=== PATIENT | male | born 1980 | race Caucasian/White ===

== ENCOUNTER 2017-02-26 22:10 | Inpatient (IN) | payer MEDICAID ==
[~2017-02-26] VITALS: Ht 190.5 cm; Wt 81.3 kg
[~2017-02-26 22:10] MED LIST: AMBIEN10 MG OR; AMOXICILLIN500 MG OR; CLARITIN10 MG OR; EFFEXOR75 MG OR; KLONOPIN1 MG OR; LORTAB 10 OR; LORTAB 5 OR; LORTAB 7.5 OR; NO HOME MEDS PER PT; NO MEDS
--- NOTE | 2017-02-26 22:12 | NUR ---
PT WHEELED STRAIGHT BACK TO ROOM 9
--- NOTE | 2017-02-26 22:55 | NUR ---
MOM AT BEDSIDE, BLOOD DRAWN AFTER IV SITE STARTED AND PT AWARE HE HAS A PNUEMOTHORAX.
[2017-02-26 23:17] LABS: HEMATOCRIT 43.7 % (39.0-50.0); HEMOGLOBIN 15.2 g/dl (14.0-18.0); IMMATURE GRANULOCYTES 0.2 % (0.0-1.0); MEAN CELL VOLUME 94.2 fL CALC (80.0-100.0); MEAN CORPUSCULAR HGB 32.8 pG CALC (26.0-32.0); MEAN CORPUSCULAR HGB CONC 34.8 g/L CALC (32.0-36.0); NEUT# 5.49 thou/uL (1.82-7.42); RED BLOOD COUNT 4.64 mill/uL (4.70-6.10); RED CELL DISTRI WIDTH 13.1 % (11.5-15.5)
[2017-02-26 23:30] LABS: ALBUMIN 4.5 g/dL (3.2-5.0); ALKALINE PHOSPHATASE 47 u/l (38-126); ANION GAP 14 (6-22 (CALC)); BILIRUBIN, TOTAL 0.6 mg/dL (0.0-1.4); BUN 10 mg/dL (9-20); BUN/CREATININE RATIO 15 (12-20 (CALC)); CALCIUM 9.1 mg/dL (8.4-10.2); CARBON DIOXIDE 25 mmol/l (22-30); CHLORIDE 105 mmol/l (95-108); CREATININE 0.7 mg/dL (0.7-1.3); GFR > 60 ML/MIN (>=60 (CALC)); GFR FOR AFR.AMER. > 60 ML/MIN (>=60 (CALC)); GLUCOSE 99 mg/dL (75-110); POTASSIUM 3.7 mmol/l (3.5-5.1); SGOT/AST 24 u/l (17-59); SGPT/ALT 19 u/l (21-72); SODIUM 140 mmol/l (137-146); TOTAL PROTEIN 7.5 g/dL (6.3-8.2)
[2017-02-26 23:42] LABS: MYOGLOBIN 11 ng/mL (0 - 121)
--- NOTE | 2017-02-26 23:50 | NUR ---
IN WITH DR CARRILLO TO ASSIST WITH CHEST TUBE INSERTION.
[2017-02-27] VITALS (22 sets, daily range): BP systolic 98–145; BP diastolic 62–88
--- NOTE | 2017-02-27 00:21 | NUR ---
POST INSERTION XRAY DONE AND LUNG EXPANDED AND TUBE IN PLACE.
--- NOTE | 2017-02-27 01:28 | NUR ---
Admission Note Report Given to: RAGHAV LOPEZ. Transported by: Wheelchair X Stretcher Transported with: X Nurse Transporter X Patent IV O2 X Karate Instructor
--- NOTE | 2017-02-27 01:41 | NUR ---
male pt received to ICU bed 4 via stretcher accompanied by Dez Leone RN in stable condition; ambulatory to bed with weak/steady gait; admission assessment completed; pt alert and oriented; complaints of constant sharp pain to chest/chest tube site rating 5/10; will medicate; no n/v noted; resp even and unlabored; chest rise symmetrical; lungs clear/diminished slightly in left base; skin color wnl; ra; o2 sat 99%; chest tube intact to left lateral chest wall (5th ICS per Dez Leone); dressing cdi; no draingage noted; no crepitus palpated; chest tube to -20cm H20 suction/wall regulator; no air leak noted; hr reg; sb on monitor; strong pulses; no edema noted; bilat knee high nellie hose placed; abd soft with bs present; pt admits to voiding without difficulty; #18 in rfa saline locked; plan of care/ meds explained; oriented to bed and call light system; will continue to monitor
[2017-02-27 01:43] LABS: URINE BILIRUBIN - DIPSTICK NEGATIVE (NEGATIVE); URINE BLOOD DIPSTICK NEGATIVE (NEGATIVE); URINE CLARITY CLEAR; URINE COLOR YELLOW; URINE GLUCOSE - DIPSTICK NEGATIVE (NEGATIVE); URINE KETONE NEGATIVE (NEGATIVE); URINE LEUK ESTERASE NEGATIVE (NEGATIVE); URINE NITRITE - DIPSTICK NEGATIVE (Negative); URINE PROTEIN - DIPSTICK NEGATIVE (NEG-TRACE); URINE SPECIFIC GRAVITY <=1.005; URINE UROBILINOGEN - DIPSTICK 0.2 E.U./dL (0.2)
--- NOTE | 2017-02-27 02:09 | NUR ---
medicated with toradol as per orders for complaints of pain at chest tube site and chest rating 5/10; pain meds reviewed; pt states lortab causes vomiting; admits to taking lortab years ago for back pain; will continue to monitor
--- NOTE | 2017-02-27 03:02 | NUR ---
resting with eyes closed; no distress noted; chest tube intact/patent; clamps and vaseline gauzes at bedside; sb 46 on monitor; will continue to monitor
--- NOTE | 2017-02-27 04:05 | NUR ---
resting with eyes closed; no distress noted; ra; resp even and unlabored; chest tube patent to -20cm H2O; sb on monitor; will continue to monitor
--- NOTE | 2017-02-27 04:52 | NUR ---
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
--- NOTE | 2017-02-27 05:03 | NUR ---
medicated with morphine as per orders; sb 58 on monitor; pt admits to low heart rate; xray at bedside; also medicated wtih [place] for complaints of gas/ indigestion; states "i have to fart but can't because it hurts to bad"; will continue to monitor
--- NOTE | 2017-02-27 06:10 | NUR ---
resting in bed with eyes closed; resp remain even and unlabored; no distress noted; sb on monitor; hr noted as low as 37; iv intact; bed in lowest position; call light within reach
--- NOTE | 2017-02-27 06:14 | NUR ---
Dr Nuno called this proposal lead writer; update given; orders received to place chest tube to water seal;
--- NOTE | 2017-02-27 06:20 | NUR ---
chest tube placed to water seal/removed from suction; deep breathing strongly encouraged; pt reluctant d/t pain while deep breathing; no air leak/bubbling noted while deep breathing; o2 sats remain at 97-100%; will continue to monitor
--- NOTE | 2017-02-27 06:35 | NUR ---
awake; deep breathing encouraged and tolerated; no bubbling noted
--- NOTE | 2017-02-27 06:45 | NUR ---
BS REPORT RECEIVED FROM RAGHAV LOPEZ. PT RESTING IN HIGH FOWLERS, ATRIUM ASSESSED. NO LEAK PRESENT, PT ABLE TO TAKE A DEEP BREATHE IN, NO BUBBLING NOTED. DRY SUCTION PRESENT. VSS. PT CALL LIGHT WITHIN REACH. WILL CONTINUE TO MONITOR.
--- NOTE | 2017-02-27 08:15 | NUR ---
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 STATES "IM CHOKING, I CANT BREATHE." PT GIVEN ENCOURAGEMENT TO TAKE DEEP BREATHES, SPO2 IS 100 ON RA. LUNG SOUNDS ASSESSED. ANTERIOR/POSTERIOR LUNG SOUNDS HEARD. CHEST TUBE INSERTION SITE IS UNCHANGED. NO CREPITUS NOTED UPON PALPATION AROUND CHEST TUBE. BUBBLING NOTED IN CHAMBER WITH EACH DEEP BREATHE. EMAR REVIEWED, PAIN MEDICATION DISCUSSED. WILL MEDICATE PT WITH TORADOL. PT AGREEABLE.
--- NOTE | 2017-02-27 08:55 | NUR ---
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 CAN YOU TAKE IT OFF?" PATCH REMOVED AT THIS TIME. CHRIS MESA IN ROOM. PT CALL LIGHT WITHIN REACH. WILL CONTINUE TO MONITOR.
--- NOTE | 2017-02-27 09:15 | NUR ---
IN TO SEE PT AT THIS TIME. AWARE OF BUBBLING IN CHAMBER. DR. BARBOZA CONSULTED. ORDERS ARE TO CLAMP THE CHEST TUBE AT 1700 AND REPEAT CXR IN AM. PT AGREEABLE AND STATES UNDERSTANDING. WILL CONTINUE TO MONITOR.
--- NOTE | 2017-02-27 11:40 | NUR ---
PT TOLERATED 75% OF MEAL MULTIPLE MEMBERS OF FAMILY PRESENT. CALL LIGHT WITHIN REACH. WILL CONTINUE TO MONITOR.
--- NOTE | 2017-02-27 12:06 | NUR ---
DR. BARBOZA IN TO SEE PT AT THIS TIME. AGREES WITH DR. JOHNSON'S EXISTING ORDERS TO CLAMP CHEST TUBE AT 1700, AND REPEAT CXR IN AM. PT STATES UNDERSTANDING TO THE PLAN OF CARE, DENIES RESPIRATORY DISTRESS. WILL CONTINUE TO MONITOR.
--- NOTE | 2017-02-27 12:49 | NUR ---
PT MEDICATED WITH MORPHINE AT THIS TIME FOR EXTREME PAIN. PT ENCOURAGED TO TAKE DEEP BREATHES. WILL CONTINUE TO MONITOR PAIN AND RESPIRATIONS. HR IS BETWEEN 36-65. PT STATES "ENEIDA ALWAYS HAD A LOW HEART RATE." WILL CONTINUE TO MONITOR
--- NOTE | 2017-02-27 14:00 | NUR ---
PT IN HIGH FOWLERS RESTING WITH EYES CLOSED. CALL LIGHT WITHIN REACH. VSS. WILL CONTINUE TO MONITOR.
--- NOTE | 2017-02-27 16:18 | NUR ---
VISITOR AT BS, PT STATES "I ACTUALLY GOT TO SLEEP A LITTLE BIT." I STILL HEAR THE BUBBLING, JUST NOT BAD." VSS, PT STATES PAIN IS TOLERABLE. CALL LIGHT WITHIN REACH. WILL CONTINUE TO MONITOR.
--- NOTE | 2017-02-27 17:00 | NUR ---
CHEST TUBE CLAMPED AT THIS TIME. PT VSS STABLE. EXHIBITS NO S/S OF RESPIRATORY DISTRESS. LUNG SOUNDS REMAIN UNCHANGED. WILL CONTINUE TO MONITOR.
--- NOTE | 2017-02-27 18:10 | NUR ---
IS DELIVERED FROM RT, PT GIVEN EDUCATION AND INSTRUCTION OF IS. PT ABLE TO ACHEIVE GOAL OF 1500 X10. NO BUBBLING NOTED IN CHAMBER WHILE PERFORMING ACTIVITIES. FAMILY AT BS. CALL LIGHT WITHIN REACH. WILL CONTINUE TO MONITOR.
--- NOTE | 2017-02-27 18:50 | NUR ---
REPORT FROM RAGHAV BASURTO. ASSUMED PT. CARE.
--- NOTE | 2017-02-27 19:35 | NUR ---
PT. FOUND AWAKE, ALERT, ORIENTED X 3. NO DISTRESS NOTED. SINUS ANAM ON THE MONITOR RATE IN THE UPPER 40'S. SPO2 IS 100% ON RA. BP STABLE. PT. STATES HIS PAIN IS EXACERBATED UPON DEEP INSPIRATION. LUNG SOUNDS CLEAR BILATERALLY, WITH JUST A MINIMAL RUB UPON THE END OF EXPIRATION TO THE LT. UPPER LUNG FIELD. RATES PAIN 7/10 AT THIS TIME. LAZAR. KRISTA. RESPS EVEN AND UNLABORED. SKIN WARM AND DRY. AFEBRILE. WILL CONTINUE TO MONITOR. ADVISED PT. OF AVAILABLE MEDICATION AND SCHEDULING OF PAIN MEDICATION IF NEEDED. CALL LIGHT WITHIN REACH. SIG OTHER AT BEDSIDE AT THIS TIME.
--- NOTE | 2017-02-27 21:30 | NUR ---
PT. STATES HE IS GETTING TIRED AT THIS TIME. MEDICATED WITH XANAX PER HIS REQUEST TO ASSIST HIM IN SLEEPING. RELATES HE IS MILDLY ANXIOUS AT THIS TIME. WILL MEDICATE ORDERED. CALL LIGHT REMAINS WITHIN REACH.
--- NOTE | 2017-02-27 23:15 | NUR ---
PT. RESTING IN BED WITH EYES CLOSED. REMAINS SINUS ANAM ON THE MONITOR. RESPS EVEN AND UNLABORED 14/MIN. SKIN WARM AND DRY. SPO2 IS 99% ON RA. NO AIR LEAKS NOTED TO CHEST TUBE ASSEMBLY. CHEST TUBE REMAINS CLAMPED AT THIS TIME. CALL LIGHT REMAINS WITHIN REACH. WILL CONTINUE TO MONITOR.
[2017-02-28] VITALS (12 sets, daily range): BP systolic 95–140; BP diastolic 58–86
--- NOTE | 2017-02-28 00:58 | NUR ---
PT. RESTING WITH EYES CLOSED AND SNORING RESPIRATIONS. NO RESP DISTRESS NOTED. REMAINS SINUS ANAM ON THE MONITOR. SPO2 99% ON RA. CALL LIGHT REMAINS WITHIN REACH. WILL CONTINUE TO ASSESS.
--- NOTE | 2017-02-28 01:59 | NUR ---
PT. REMAINS AROUSABLE TO LIGHT VERBAL STIMULI. NO DISTRESS. C/O MILD PAIN 10/28 AT THIS TIME. MEDICATED WITH TORADOL PER ORDERS. RESPS REMAIN EVEN AND UNLABORED. SKIN WARM AND DRY. AFEBRILE. PROVIDED WITH WATER AT THIS TIME. DENIES OTHER COMPLAINTS.
--- NOTE | 2017-02-28 02:27 | NUR ---
PT. C/O LT. CHEST WALL PAIN AFTER GETTING UP TO URINATE. SCANT BLOODY DRAINAGE NOTED AT SITE OF CHEST TUBE. TUBE REMAINS INTACT AT THIS TIME. PT. DENIES SOB. SPO2 REMAINS AT 100%. MEDICATED WITH MORPHINE ORDERED AND PAIN HAS SUBSIDED. ELASTOPLAST APPLIED TO REINFORCE TUBE.
--- NOTE | 2017-02-28 04:15 | NUR ---
PT. RESTING WITH EYES CLOSED AND EVEN RESPIRATIONS. SLIGHTLY HYPOTENSIVE AT THIS TIME. WILL CONTINUE TO ASSESS. SPO2 STABLE AT 99% ON RA. PT. REMAINS ANAM AT 38-45 SINUS RHYTHM. NO DISTRESS.
--- NOTE | 2017-02-28 04:48 | NUR ---
PT. REMAINS AROUSABLE TO VERBAL STIMULI. LAB AT BEDSIDE AT THIS TIME. PT. INFORMED OF PENDING 1 VIEW CHEST. NO ADDITIONAL DRAINAGE NOTED FROM CHEST TUBE DRESSING SITE.
--- NOTE | 2017-02-28 05:00 | NUR ---
RADIOLOGY AT BEDSIDE AT THIS TIME FOR PORTABLE 1 VIEW CHEST.
[2017-02-28 06:12] LABS: HEMATOCRIT 42.5 % (39.0-50.0); HEMOGLOBIN 14.5 g/dl (14.0-18.0); IMMATURE GRANULOCYTES 0.3 % (0.0-1.0); MEAN CELL VOLUME 96.6 fL CALC (80.0-100.0); MEAN CORPUSCULAR HGB CONC 34.1 g/L CALC (32.0-36.0); NEUT# 6.56 thou/uL (1.82-7.42); RED BLOOD COUNT 4.4 mill/uL (4.70-6.10)
[2017-02-28 06:27] LABS: ANION GAP 9 (6-22 (CALC)); BUN 10 mg/dL (9-20); BUN/CREATININE RATIO 15 (12-20 (CALC)); CALCIUM 8.5 mg/dL (8.4-10.2); CARBON DIOXIDE 29 mmol/l (22-30); CHLORIDE 105 mmol/l (95-108); CREATININE 0.7 mg/dL (0.7-1.3); GFR > 60 ML/MIN (>=60 (CALC)); GFR FOR AFR.AMER. > 60 ML/MIN (>=60 (CALC)); GLUCOSE 73 mg/dL (75-110); POTASSIUM 4.5 mmol/l (3.5-5.1); SODIUM 139 mmol/l (137-146)
--- NOTE | 2017-02-28 06:32 | NUR ---
MADE AWARE OF SMALL LT. APICAL PNEUMO ON CHEST XRAY. PER DR. DODD, LEAVE CHEST TUBE CLAMPED AT THIS TIME. PT. RESTING IN BED WITH EYES CLOSED. NO DISTRESS. 100% SPO2 ON RA.
--- NOTE | 2017-02-28 06:45 | NUR ---
REPORT RECEIVED FROM RAGHAV ROE PT OBSERVED TO BE RESING WITH EYES CLOSED. VSS, DOES NOT EXHIBIT ANY S/S OF RESPIRATORY DISTRESS WILL CONTINUE TO MONITOR.
--- NOTE | 2017-02-28 07:30 | NUR ---
PT AWAKE AND ALERT. ASSESSMENT PERFORMED. LUNG SOUNDS PRESENT ANTERIORLY AND POSTERIORLY THROUGHOUT LEFT AND RIGHT LUNG FIELD. PT REPORTS TO BE FEELING BETTER. SUCTION CANISTER SET TO DRY SUCTION. VSS. DENIES PAIN AT THIS TIME. WILL CONTINUE TO MONITOR.
--- NOTE | 2017-02-28 08:25 | NUR ---
IN TO SEE PT AT THIS TIME. HEMASTATS REMOVED FROM CHEST TUBE. AIR BUBBLES PRESENT IN CHAMBER. WILL KEEP TUBING UN-CLAMPED AND CONNECTED TO WATER SEAL. DRSG TO TUBE INSERTION SITE REINFORCED. PT HAS SCANT AMOUNT OF BLOOD ON SKIN AND ON CHEST TUBE BELOW DRSG. MD AWARE.
--- NOTE | 2017-02-28 08:35 | NUR ---
PT MEDICATED WITH TORADOL AND XANAX FOR PAIN LOCATED TO CHEST TUBE INSERTION SITE AND LEFT SIDE OF CHEST. CALL LIGHT WITHIN REACH. FAMILY REMAINS AT BS. WILL CONTINUE TO MONITOR.
--- NOTE | 2017-02-28 09:55 | NUR ---
MD NOTIFIED OF PT'S CHANGE STATUS, WILL COME AND RE-ASSESS PT. PT MEDICATED WITH MORPHINE, STAT CXR OBTAINED.
--- NOTE | 2017-02-28 10:02 | NUR ---
CXR PERFORMMED AT THIS TIME. CT OF CHEST ORDERED IN ADDITION.
--- NOTE | 2017-02-28 11:00 | NUR ---
PT ASSISTED FROM BED TO WHEELCHAIR, AND TAKEN TO CT PROCEDURE. STABLE AT TIME OF DEPARTURE.
--- NOTE | 2017-02-28 11:30 | NUR ---
PT RETURNED FROM CT SCAN IN STABLE CONDITION. VSS OBTAINED. PT ASSISTED IN BED. ABLE TO CLEAR SECRETIONS, COMPLAINS OF PAIN LOCATED ANTERIORLY (APPROXIMATELY THE 4TH-5TH INTERCOSTAL SPACE). NO CREPITUS NOTED WHEN PERFORMING SKIN EXAMINATION. FAMILY AT , WILL CONTINUE TO MONITOR.
--- NOTE | 2017-02-28 13:21 | NUR ---
PAIN MEDICATION FOR CONTINUAL PAIN LOCATED TO THE FRONT OF LEFT CHEST WALL. PT CALL LIGHT WITHIN REACH. VSS INSTRUCTED PT TO CALL FOR ASSISANCE. STATES UNDERSTANDING.
--- NOTE | 2017-02-28 14:40 | NUR ---
ON PHONE AT THIS TIME. CT REPORT REVIEWED, ADJUSTMENTS MADE TO PLAN OF CARE, 1700 CLAMPING AND REPEAT CXR IN AM.
--- NOTE | 2017-02-28 16:10 | NUR ---
PT RESTING IN BED IN HIGH FOWLERS POSITION. CHEST TUBE SYSTEM ASSESSED. INTRATHORACIC PRESSURE CHAMBER NOTED TO BE AT 20CM, AND BEVEL NOT MOVING, WITH ANY TYPE OF MANIPULTION. HOSES ASSESSED FOR ANY KINKING OR LEAKING, NONE FOUND. SYSTEM TAPED TO FLOOR, PT AND FAMILY MEMBER DENY AT ANY TIME, SYSTEM BEING KNOCKED OVER. OASIS SYSTEM CHANGED AND SETUP TO DIRECTIONS PROVIDED. PT TOLERATED PROCEDURE WELL, MINIMAL AMOUNT OF PAIN NOTED. WHEN TUBING DISCONNECTED, AND NEW TUBING CONNECTED; PT STATED IMMEDIATE RELIEF OF PAIN AND PRESSURE IN THE ANTERIOR AND POSTERIOR OF CHEST. BEVEL IN THORACIC PRESSURE CHAMBER RESUMES MOVEMENT BEFORE. PT USE OF IS SUCCESSFUL, SMALL INTERMEDIATE AIR LEAK NOTED. VSS. PT REQUESTING PAIN MEDICATION AT THIS TIME, EMAR REVIEWED. WILL MEDICATE ACOORDINGLY.
--- NOTE | 2017-02-28 16:39 | NUR ---
PAIN/ INFLAMMATION/ AND ANXIETY MEDICATION GIVEN AT THIS TIME. PT GIVEN EDUCTION OF MECHANISM OF ACTION OF EACH. STATES UNDERSTANDING. VSS, CALL LIGHT WITHIN REACH. FAMILY REMAINS AT BS, WILL CONTINUE TO MONITOR.
--- NOTE | 2017-02-28 17:00 | NUR ---
TUBING CLAMPED AT THIS TIME, PER MD ORDER. AIR LEAK NOT SEEN WHILE PT OBSERVED ON THE IS. PT ABLE TO TALK WITH ADDITIONAL FAMILY IN ROOM. NO LEAK OBSERVED. FAMILY AND PT GIVEN EDUCATION OF EACH CHAMBER OF SUCTION CANISTER. STATES UNDERSTANDING, WILL PROVIDE RE-EDUCATION NEEDED. CALL LIGHT WITHIN REACH. VS REMAIN STABLE.
--- NOTE | 2017-02-28 18:50 | NUR ---
REPORT FROM RAGHAV BASURTO. ASSUMED PT. CARE.
--- NOTE | 2017-02-28 19:30 | NUR ---
PT. FOUND AWAKE, ALERT, ORIENTED X 3 IN NO DISTRESS. READING A BOOK AT THIS TIME. SPO2 IS STABLE AT 100% ON RA. NO DISTRESS. NO LEAKS NOTED TO CHEST TUBE DRAINAGE METER. CHEST TUBE IS CLAMPED AT THIS TIME. PT. HR STABLE IN THE 40-50'S. PT. DENIES COMPLAINTS OF NEED. STATES WITH 6/10 PAIN AT THIS TIME. WILL MEDICATE ORDERS ALLOW. CHEST TUBE CLEANSED OF DRIED BLOOD AT THIS TIME. NO ADDITIONAL BLEEDING NOTED AT INSERTION SITE OF FROM THE TUBE. RESPS EVEN AND UNLABORED. SKIN WARM AND DRY. KRISTA. NAGI.
--- NOTE | 2017-02-28 21:15 | NUR ---
PT. RESTING IN BED WITH NO DISTRESS. EYES CLOSED AND SNORING RESPIRATIONS. PT. DENIES COMPLAINTS OF PAIN OR NEED AT THIS TIME. WILL CONTINUE TO ASSESS.
--- NOTE | 2017-02-28 22:37 | NUR ---
PT. UP AT BEDSIDE TO URINATE AT THIS TIME. APPROX 55O CC URINE OUT. MEDICATED PER ORDERS. PT. REPOSITIONED FOR COMFORT. CHEST TUBE ASSEMBLY REMAINS INTACT WITHOUT SIGNS OF AIR LEAK. PT. REMAINS STABLE WITH SPO2 OF 100% ON RA.
[2017-03-01] VITALS (9 sets, daily range): BP systolic 93–124; BP diastolic 51–80
--- NOTE | 2017-03-01 00:16 | NUR ---
PT. RESTING IN BED WITH EYES CLOSED. VOICES NO COMPLAINTS OR CONCERNS. RESPS EVEN AND UNLABORED. SKIN WARM AND DRY. REMAINS SINUS ANAM ON THE MONITOR. SLIGHTLY HYPOSTENSIVE. SPO2 IS 98% ON RA. NO DISTRESS. CALL LIGHT REMAINS WITHIN REACH.
--- NOTE | 2017-03-01 02:15 | NUR ---
PT. RESTING IN BED SUPINE IN NO DISTRESS. RESPS EVEN AND UNLABORED. SKIN WARM AND DRY. DENIES COMPLAINTS.
--- NOTE | 2017-03-01 04:28 | NUR ---
PT. AWAKE, ALERT, ORIENTED X 3. SKIN WARM AND DRY. SCANT BLOODY DRAINAGE NOTED DOWN TUBE AFTER PT. GOT UP TO URINATE. STATES WITH BURNING AT SITE OF C CHEST TUBE. REPOSITIONED FOR COMFORT. ORANGE JUICE PROVIDED PER HIS REQUEST. REMAINS STABLE. RESPS EVEN AND UNLABORED. NO AIR LEAK NOTED TO CHEST TUBE ASSEMBLY. MAE. VELASCO. REMAINS AFEBRILE.
--- NOTE | 2017-03-01 05:20 | NUR ---
LAB AND RADIOLOGY AT BEDSIDE AT THIS TIME. 1 VIEW PORTABLE CHEST PERFORMED.
[2017-03-01 05:44] LABS: ANION GAP 9 (6-22 (CALC)); BUN 11 mg/dL (9-20); BUN/CREATININE RATIO 16 (12-20 (CALC)); CALCIUM 8.6 mg/dL (8.4-10.2); CARBON DIOXIDE 30 mmol/l (22-30); CHLORIDE 102 mmol/l (95-108); CREATININE 0.7 mg/dL (0.7-1.3); GFR > 60 ML/MIN (>=60 (CALC)); GFR FOR AFR.AMER. > 60 ML/MIN (>=60 (CALC)); GLUCOSE 98 mg/dL (75-110); POTASSIUM 4.1 mmol/l (3.5-5.1); SODIUM 138 mmol/l (137-146)
[2017-03-01 06:00] LABS: HEMATOCRIT 41.6 % (39.0-50.0); HEMOGLOBIN 14.2 g/dl (14.0-18.0); IMMATURE GRANULOCYTES 0.4 % (0.0-1.0); MEAN CELL VOLUME 96.3 fL CALC (80.0-100.0); MEAN CORPUSCULAR HGB 32.9 pG CALC (26.0-32.0); MEAN CORPUSCULAR HGB CONC 34.1 g/L CALC (32.0-36.0); NEUT# 4.77 thou/uL (1.82-7.42); RED BLOOD COUNT 4.32 mill/uL (4.70-6.10); RED CELL DISTRI WIDTH 12.8 % (11.5-15.5)
--- NOTE | 2017-03-01 07:20 | NUR ---
PT LAYING IN BED AWAKE WATCHING TV, VERBALIZES HE IS HAVING SOME DISCOMFORT OF HIS LEFT SIDE, PT STATED "I THINK IT'S FROM THE CHEST TUBE", A & O X3, PERRL, HR 75, RESP. 20, BP 121/75, O2 99% ON RA, LUNG SOUNDS CLEAR IN ALL HERNANDEZ, 18G RFA IV SALINE LOCKED, CHEST TUBE REMAINS IN PLACE WITH NO SUCTION, DRESSING CD&I, AM ASSESSMENT COMPLETE, SEE INTERVENTIONS, SAFETY MEASURES IN PLACE, CALL HERNANDEZ WITHIN REACH
--- NOTE | 2017-03-01 07:30 | NUR ---
SETUP ASSISTANCE PROVIDED WITH BHAVIN GOLDEN
--- NOTE | 2017-03-01 08:50 | NUR ---
DR JOHNSON AT BEDSIDE, DC'D CHEST TUBE, PT TOLERATED WELL, PRESSURE DRESSING APPLIED
--- NOTE | 2017-03-01 09:10 | NUR ---
PT ASSISTED TO THE BSC AND BACK TO BED, PT AMBULATED WITH A SLOW STEADY GAIT, TOLERATED WELL, CALL HERNANDEZ WITHIN REACH
--- NOTE | 2017-03-01 10:26 | NUR ---
PT LAYING IN BED WATCHING TV WITH VISITOR AT BEDSIDE, PT VERBALIZES NO COMPLAINTS, PRESSURE DRESSING CD&I, PT REMINDED TO CALL FOR ASSISTANCE, CALL HERNANDEZ WITHIN REACH
--- NOTE | 2017-03-01 10:55 | NUR ---
PT TO ROOM VIA WC ACCOMPANIED BY STAFF; AMBULATORY IN ROOM; ORIENTED TO ROOM AND CALL SYSTEM; PRESSURE DRSG TO LEFT SIDE OF CHEST CDI; CALL HERNANDEZ WITHIN REACH; WILL CONTINUE TO MONITOR.
--- NOTE | 2017-03-01 11:44 | NUR ---
PT MEDICATED FOR C/O LEFT SIDE CHEST PAIN 03/30; FAMILY IN ROOM; CALL HERNANDEZ WITHIN REACH; WILL CONTINUE TO MONITOR.
--- NOTE | 2017-03-01 16:28 | NUR ---
PT IS RELAXING IN BED AND VISITING WITH FAMILY NO DISTRESS NOTED. IV SITE IS FREE FROM REDNESS OR EDEMA.
--- NOTE | 2017-03-01 19:29 | NUR ---
PT. SITTING UP IN BED WITH NO RESP DISTRESS NOTED. ASSESSMENT COMPLETED. IV SITE PATENT TO RFA, DL, FLUSHED WITH NS. DRESSING CDI TO LEFT SIDE OF CHEST. PT. C/O LEFT PLEURAL PAIN 03/30, MEDICATED WITH ORDERED PERCOCET AND XANAX PER PTS REQUEST AND PER ORDER. PO FLUIDS OFFERED. PT. DENIES FURTHER NEEDS. CALL LIGHT IS IN REACH. WILL CONTINUE TO MONITOR.
--- NOTE | 2017-03-01 23:35 | NUR ---
PT. IS RESTING IN BED WITH EYES CLOSED. NO DISTRESS NOTED. RESP EVEN AND UNLABORED. CALL LIGHT IS IN REACH.
[2017-03-02 00:06] VITALS: BP 106/66
--- NOTE | 2017-03-02 03:15 | NUR ---
PT. RESTING IN BED WITH EYES CLOSED, SNORING. RESP EVEN AND UNLABORED. CALL LIGHT IS IN REACH.
--- NOTE | 2017-03-02 04:35 | NUR ---
PT. WOKE UP C/O LEFT PLEURAL/CHEST PAIN, MEDICATED WITH ORDERED PERCOCET AND TORDAOL, WILL REASSESS. PO FLUIDS OFFERED. DRESSING REMAINS CDI TO LEFT SIDE OF CHEST. DENIES FURTHER NEEDS. CALL LIGHT IS IN REACH.
[2017-03-02 04:45] VITALS: BP 116/75
--- NOTE | 2017-03-02 07:25 | NUR ---
REPORT RECEIVED FROM JENSEN CATHERINE. PT.SLEEPING AT THIS TIME, NO S/S OF DISTRESS, CALL LIGHT W/IN REACH
[2017-03-02 10:03] VITALS: BP 110/50
[2017-03-02] MEDS ORDERED: LORTAB 5-325 MG1 TAB PO (13:24)
[2017-03-02] MEDS ORDERED: NICOTINE T21 MG/PATC TD (13:24)
--- NOTE | 2017-03-02 15:15 | NUR ---
PT.OFF FLOOR DISCHARGED, PT.IN GOOD CONDITION AT THIS TIME. PT.WAS ACCOMPANIED BY HOSPITAL VOLUNTEER AND VIA
== END 2017-03-02 16:09 | disposition home or self-care (01) | DRG 201 ==
LOC: ENPENDDIS → ED 22:10 → ED-I 23:58 → ED 02-27 00:29 → ICU 02-27 00:30 → MS2 02-27 00:30
PROVIDERS: Emergency Medicine; Internal Medicine; Nurse Practitioner Family; ADMIT Internal Medicine; ATTEND Internal Medicine
PROC: 0W9B30Z Drainage of Left Pleural Cavity with Drainage Device, Percutaneous Approach (ICD-10-PCS; principal; 2017-02-27)
DX: J93.83 Other pneumothorax (principal); E01.0 Iodine-deficiency related diffuse (endemic) goiter; F17.210 Nicotine dependence, cigarettes, uncomplicated; F12.90 Cannabis use, unspecified, uncomplicated; R01.1 Cardiac murmur, unspecified
CPT/HCPCS: Q9967

== ENCOUNTER 2018-07-23 05:26 | Emergency (ER) | payer OTHER ==
[~2018-07-23] VITALS: Ht 190.5 cm; Wt 89.0 kg
[~2018-07-23 05:26] MED LIST changes: +LORTAB 5-325 MG1 TAB PO; +NICOTINE T21 MG/PATC TD
[2018-07-23] MEDS ORDERED: GABAPENTIN100 MG PO (05:59)
[2018-07-23] MEDS ORDERED: VOLTAREN1%GEL TOP (07:45)
[2018-07-23] MEDS ORDERED: MOTRIN400 MG PO (07:45)
[2018-07-23 08:00] VITALS: BP 114/76
== END 2018-07-23 08:20 | disposition home or self-care (01) ==
LOC: ED 05:26
DX: S16.1XXA Strain of muscle, fascia and tendon at neck level, initial encounter (principal); S29.012A Strain of muscle and tendon of back wall of thorax, initial encounter; M50.33 Other cervical disc degeneration, cervicothoracic region; F17.210 Nicotine dependence, cigarettes, uncomplicated; X58.XXXA Exposure to other specified factors, initial encounter; M54.6 Pain in thoracic spine; M54.2 Cervicalgia

== ENCOUNTER 2020-09-25 07:30 | Emergency (ER) | payer OTHER ==
[~2020-09-25] VITALS: Ht 190.5 cm; Wt 86.4 kg
[~2020-09-25 07:30] MED LIST changes: +MOTRIN400 MG PO; +NEURONTIN600 MG PO; +VOLTAREN1%GEL TOP
[2020-09-25 08:23] LABS: HEMATOCRIT 45.3 % (39.0-50.0); HEMOGLOBIN 15.6 g/dl (14.0-18.0); IMMATURE GRANULOCYTES 0.2 % (0.0-5.0); MEAN CORPUSCULAR HGB 32.4 pG CALC (26.0-32.0); MEAN CORPUSCULAR HGB CONC 34.4 g/dL CAL (32.0-36.0); NEUT# 6.15 thou/uL (1.82-7.42); RED BLOOD COUNT 4.82 mill/uL (4.70-6.10); RED CELL DISTRI WIDTH 12.9 % (11.5-15.5)
[2020-09-25] MEDS ORDERED: METHOCARBAMOL500 MG PO (08:48)
[2020-09-25 08:55] LABS: ALKALINE PHOSPHATASE 61 u/l (38-126); BILIRUBIN, TOTAL 0.8 mg/dL (0.0-1.4); BUN 7 mg/dL (9-20); BUN/CREATININE RATIO 13 (12-20 (CALC)); CHLORIDE 102 mmol/l (95-108); CREATININE 0.6 mg/dL (0.7-1.3); GFR > 60 ML/MIN (>=60 (CALC)); GFR FOR AFR.AMER. > 60 ML/MIN (>=60 (CALC)); LIPASE 46 u/l (23-300); POTASSIUM 3.6 mmol/l (3.5-5.1); SGOT/AST 26 u/l (17-59); SODIUM 134 mmol/l (137-146); TOTAL PROTEIN 6.9 g/dL (6.3-8.2)
[2020-09-25 08:57] LABS: ANION GAP 13 (6-22 (CALC)); CARBON DIOXIDE 23 mmol/l (22-30)
[2020-09-25 08:59] LABS: URINE BLOOD DIPSTICK NEGATIVE (NEGATIVE); URINE COLOR YELLOW; URINE GLUCOSE - DIPSTICK NEGATIVE (NEGATIVE); URINE KETONE 40 mg/dL (NEGATIVE); URINE LEUK ESTERASE NEGATIVE (NEGATIVE); URINE NITRITE - DIPSTICK NEGATIVE (Negative); URINE PH 8.5 (4.5-8.0); URINE PROTEIN - DIPSTICK NEGATIVE (NEG-TRACE)
[2020-09-25 09:10] LABS: URINE BILIRUBIN - DIPSTICK NEGATIVE (NEGATIVE)
[2020-09-25] MEDS ORDERED: ZOFRAN4 M1 PO (10:47)
[2020-09-25 11:05] VITALS: BP 120/73
== END 2020-09-25 11:20 | disposition home or self-care (01) ==
LOC: ED 07:30
PROVIDERS: Family Medicine
DX: R10.84 Generalized abdominal pain (principal); R11.2 Nausea with vomiting, unspecified; F17.200 Nicotine dependence, unspecified, uncomplicated; Z20.822 Contact with and (suspected) exposure to COVID-19
CPT/HCPCS: Q9967

== ENCOUNTER 2021-12-13 09:34 | Emergency (ER) | payer OTHER ==
[~2021-12-13] VITALS: Ht 190.5 cm; Wt 85.6 kg
[~2021-12-13 09:34] MED LIST changes: +METHOCARBAMOL500 MG PO; +ZOFRAN4 M1 PO
[2021-12-13 09:40] VITALS: BP 114/79
[2021-12-13] MEDS ORDERED: AMOXICILLIN500 MG PO (09:52)
[2021-12-13] MEDS ORDERED: NAPROXEN500 MG PO (09:52)
[2021-12-13 10:00] VITALS: BP 95/65
[2021-12-13 10:14] VITALS: BP 95/65
== END 2021-12-13 10:14 | disposition home or self-care (01) ==
LOC: ED 09:34
DX: S02.5XXA Fracture of tooth (traumatic), initial encounter for closed fracture (principal); F17.210 Nicotine dependence, cigarettes, uncomplicated; X58.XXXA Exposure to other specified factors, initial encounter

== ENCOUNTER 2022-05-20 15:47 | Emergency (ER) | payer OTHER ==
[~2022-05-20] VITALS: Ht 190.5 cm; Wt 84.1 kg
[~2022-05-20 15:47] MED LIST changes: +AMOXICILLIN500 MG PO; +NAPROXEN500 MG PO
[2022-05-20] MEDS ORDERED: PODOFILOX0.5 % EX (19:43)
[2022-05-20 19:46] LABS: URINE BILIRUBIN - DIPSTICK NEGATIVE (NEGATIVE); URINE BLOOD DIPSTICK NEGATIVE (NEGATIVE); URINE COLOR YELLOW; URINE GLUCOSE - DIPSTICK NEGATIVE (NEGATIVE); URINE KETONE 15 mg/dL (NEGATIVE); URINE LEUK ESTERASE NEGATIVE (NEGATIVE); URINE NITRITE - DIPSTICK NEGATIVE (Negative); URINE PROTEIN - DIPSTICK NEGATIVE (NEG-TRACE); URINE SPECIFIC GRAVITY 1.025; URINE UROBILINOGEN - DIPSTICK 0.2 E.U./dL (0.2)
[2022-05-20 19:53] VITALS: BP 130/80
[2022-05-23] MEDS ORDERED: PODOFILOX0.5 % EX (09:23)
== END 2022-05-20 19:56 | disposition home or self-care (01) ==
LOC: ED 15:47
PROVIDERS: Nurse Practitioner
DX: A63.0 Anogenital (venereal) warts (principal); F17.210 Nicotine dependence, cigarettes, uncomplicated